=== PATIENT | female | born 1960 ===

== ENCOUNTER 2018-08-30 12:38 | Emergency (ER) | payer SELFPAY ==
[~2018-08-30] VITALS: Ht 162.6 cm; Wt 70.5 kg
[2018-08-30 12:57] VITALS: Ht 162.6 cm; Wt 70.5 kg
[2018-08-30] MEDS ORDERED: LIPITOR80 MG PO (12:59)
[2018-08-30] MEDS ORDERED: LISINOPRIL5 MG PO (13:00)
[2018-08-30] MEDS ORDERED: LASIX40 MG PO (13:00)
[2018-08-30] MEDS ORDERED: BACLOFEN20 M1 PO (17:00)
[2018-08-30] MEDS ORDERED: IBUPROFEN800 MG PO (17:00)
[2018-08-30 17:23] VITALS: BP 134/90
== END 2018-08-30 17:23 | disposition home or self-care (01) ==
LOC: D.ER 12:38
DX: M54.5 Low back pain (principal); M62.838 Other muscle spasm